=== PATIENT | male | born 1955 | race African-American/Black ===

== ENCOUNTER 2017-06-04 12:40 | Emergency (ER) | payer MEDICARE ==
[~2017-06-04] VITALS: Ht 170.2 cm; Wt 88.7 kg
[~2017-06-04 12:40] MED LIST: ALLOPURINOL; LOVENOX
[2017-06-04] MEDS ORDERED: SODIUM CHLORIDE FLUSH 10ML SYR IVF ONE (13:30)
[2017-06-04] MEDS ORDERED: SODIUM CHLORIDE 0.9% 1,000ML IVBOLUS ONE (13:30)
[2017-06-04 13:47] LABS: BASOPHILS # (AUTO) 0.03 x10^3/uL (0-0.1); BASOPHILS % (AUTO) 1 % (0-1); EOSINOPHILS % (AUTO) 2 % (1-7); LYMPHOCYTES # (AUTO) 2.26 x10^3/uL (1-3.4); LYMPHOCYTES % (AUTO) 37 % (22-44); MD NO; MEAN CORPUSCULAR HGB CONC 33.2 g/dL (33.2-36.2); MEAN CORPUSCULAR VOLUME 87.1 fL (81-97); MEAN PLATELET VOLUME 8.4 fL (7.4-10.4); MONOCYTES # (AUTO) 0.46 x10^3/uL (0.2-0.8); MONOCYTES % (AUTO) 8 % (2-9); NEUTROPHILS # (AUTO) 3.22 x10^3/uL (1.8-6.8); NEUTROPHILS % (AUTO) 53 % (42-75); PLATELET COUNT 229 x10^3/uL (130-400); RED BLOOD COUNT 5.15 x10^6/uL (4.38-5.82); RED CELL DISTRIBUTION WIDTH 13.9 % (9.4-14.8)
[2017-06-04 13:57] LABS: ALBUMIN 3.6 g/dL (3.4-5.0); ANION GAP 11 mmol/L (5-15); CALCIUM 8.5 mg/dL (8.5-10.1); CHLORIDE 106 mmol/L (98-107)
[2017-06-04 14:02] LABS: ALANINE AMINOTRANSFERASE 27 U/L (12-78); ALKALINE PHOSPHATASE 88 U/L (45-117); BILIRUBIN,TOTAL 0.8 mg/dL (0.2-1.0); CREATININE 1.14 mg/dL (0.7-1.3); FREE T4 (FREE THYROXINE) 0.91 ng/dL (0.76-1.46); TOTAL PROTEIN 8.3 g/dL (6.4-8.2); TROPONIN I < 0.015 ng/mL (0.000-0.045)
[2017-06-04 15:04] LABS: MICROSCOPIC AUTO
[2017-06-04 15:08] LABS: CULTURE INDICATED? NO
[2017-06-04 16:12] VITALS: BP 134/92
== END 2017-06-04 16:14 | disposition home or self-care (01) ==
LOC: ED 14:42
DX: E86.0 Dehydration (principal); E11.65 Type 2 diabetes mellitus with hyperglycemia; I10 Essential (primary) hypertension; E87.2 Acidosis
CPT/HCPCS: 36415; 71045; 80053; 81001; 83605; 83690; 84439; 84443; 84484; 85025; 93005; 96360; 99285; J7030

== ENCOUNTER 2018-01-09 11:36 | Day surgery (SDC) | payer OTHER ==
[~2018-01-09] VITALS: Ht 170.2 cm; Wt 82.2 kg
[2018-01-09 12:23] VITALS: BP 159/108
[2018-01-09] MEDS ORDERED: LACTATED RINGERS 1,000 ML IV SCH (12:26)
[2018-01-09] MEDS ORDERED: ASPI-650 PO (12:28)
[2018-01-09] MEDS ORDERED: allopurinol PO (12:28)
[2018-01-09] MEDS ORDERED: ACETAMINOPHEN 500 MG TABLET PO ONE (12:30)
[2018-01-09] MEDS ORDERED: ONDANSETRON ODT 8 MG PO ONE (12:30)
[2018-01-09] MEDS ORDERED: FENTANYL PF 100 MCG/2ML ONE (13:14)
[2018-01-09] MEDS ORDERED: MIDAZOLAM 1 MG/ML, 2ML ONE (13:14)
[2018-01-09] MEDS ORDERED: BUPIVACAINE/PF 0.5% ONE (13:26)
[2018-01-09 13:29] LABS: ALANINE AMINOTRANSFERASE 25 U/L (12-78); ALBUMIN 3.6 g/dL (3.4-5.0); ANION GAP 11 mmol/L (5-15); CALCIUM 9.8 mg/dL (8.5-10.1); CHLORIDE 105 mmol/L (98-107); CREATININE 1.02 mg/dL (0.7-1.3)
[2018-01-09 13:31] LABS: ALKALINE PHOSPHATASE 117 U/L (45-117); TOTAL PROTEIN 8.3 g/dL (6.4-8.2)
[2018-01-09] MEDS ORDERED: LABETALOL 5MG/ML, 20ML IV PRN (14:00)
[2018-01-09] MEDS ORDERED: MIDAZOLAM 1 MG/ML, 2ML IV PRN (14:00)
[2018-01-09] MEDS ORDERED: SCOPOLAMINE PATCH, 1.5MG PATCH.TD72 TD PRN (14:00)
[2018-01-09] MEDS ORDERED: PROMETHAZINE 25 MG SUPP PR PRN (14:00)
[2018-01-09] MEDS ORDERED: FENTANYL PF 100 MCG/2ML IV PRN (14:00)
[2018-01-09] MEDS ORDERED: hydrALAzine 20 MG/ML, 1ML IV PRN (14:00)
[2018-01-09] MEDS ORDERED: ONDANSETRON 2MG/ML, 2ML IV PRN (14:00)
[2018-01-09] MEDS ORDERED: ALBUTEROL/IPRATROPIUM 2.5MG/0.5MG, 3 ML NPPB PRN (14:00)
[2018-01-09] MEDS ORDERED: HYDROmorphone 1 MG/ML, 1ML IV PRN (14:00)
[2018-01-09] MEDS ORDERED: OXYcodone 5 MG/5 ML ORAL.SOL UDC PO PRN (14:00)
[2018-01-09] MEDS ORDERED: MEPERIDINE/PF 25MG/0.5ML IVPush PRN (14:00)
[2018-01-09] MEDS ORDERED: CEFAZOLIN 1,000 MG ONE (14:13)
[2018-01-09] MEDS ORDERED: PROPOFOL 10 MG/ML, 20ML ONE (14:13)
[2018-01-09] MEDS ORDERED: DEXAMETHASONE 4 MG/ML, 1ML ONE (14:13)
[2018-01-09] MEDS ORDERED: OXYcodone 5 MG/5 ML ORAL.SOL UDC ONE (14:49)
[2018-01-09] MEDS ORDERED: KETOROLAC 30 MG/1 ML ONE (16:11)
== END 2018-01-09 17:00 | disposition home or self-care (01) ==
LOC: OUT 11:36
PROVIDERS: ATTEND Orthopaedic Surgery
DX: M67.432 Ganglion, left wrist (principal); M10.9 Gout, unspecified; E11.9 Type 2 diabetes mellitus without complications; I10 Essential (primary) hypertension; Z79.82 Long term (current) use of aspirin; Z79.899 Other long term (current) drug therapy; Z98.890 Other specified postprocedural states; Z72.89 Other problems related to lifestyle; Z86.73 Personal history of transient ischemic attack (TIA), and cerebral infarction without residual deficits; Z86.718 Personal history of other venous thrombosis and embolism
CPT/HCPCS: 25111; 36415; 80053; 82962; 88304; 93005; J0690; J1100; J1885; J2250; J2704; J3010; J3490; J7120; Q0162

== ENCOUNTER 2018-01-30 05:40 | Inpatient (IN) | payer OTHER ==
[~2018-01-30] VITALS: Ht 175.3 cm; Wt 84.2 kg
[2018-01-30] VITALS (10 sets, daily range): BP systolic 162–190; BP diastolic 97–120
[~2018-01-30 05:40] MED LIST changes: +ASPI-650 PO; +allopurinol PO
[2018-01-30] MEDS ORDERED: SODIUM CHLORIDE 0.9% 1,000ML IVBOLUS ONE (06:00)
[2018-01-30] MEDS ORDERED: SODIUM CHLORIDE FLUSH 10ML SYR IVF ONE (06:00)
[2018-01-30 06:45] LABS: MICROSCOPIC NOT IND
[2018-01-30 06:46] LABS: CULTURE INDICATED? NO
[2018-01-30 06:58] LABS: AMPHETAMINE SCREEN, URINE Negative (Negative); BARBITURATE SCREEN, URINE Negative (Negative); BENZODIAZEPINE SCREEN, URINE Negative (Negative); CANNABINOID SCREEN, URINE Negative (Negative); COCAINE SCREEN, URINE Negative (Negative); METHADONE SCREEN, URINE Negative (Negative); OPIATE SCREEN, URINE Negative (Negative)
[2018-01-30 07:12] LABS: ALANINE AMINOTRANSFERASE 28 U/L (12-78); ALBUMIN 3.8 g/dL (3.4-5.0); ANION GAP 17 mmol/L (5-15); CALCIUM 8.6 mg/dL (8.5-10.1); CHLORIDE 102 mmol/L (98-107); CREATININE 1.16 mg/dL (0.7-1.3)
[2018-01-30 07:13] LABS: SALICYLATE LEVEL < 1.7 mg/dL (2.8-20.0)
[2018-01-30 07:17] LABS: ALKALINE PHOSPHATASE 122 U/L (45-117); BILIRUBIN,TOTAL 1.3 mg/dL (0.2-1.0); TOTAL PROTEIN 8.3 g/dL (6.4-8.2)
[2018-01-30 07:22] LABS: ACETAMINOPHEN < 2 mcg/mL (10-30); BASOPHILS # (AUTO) 0.02 x10^3/uL (0-0.1); BASOPHILS % (AUTO) 0 % (0-1); EOSINOPHILS # (AUTO) 0.01 x10^3/uL (0-0.4); EOSINOPHILS % (AUTO) 0 % (1-7); LYMPHOCYTES # (AUTO) 1.48 x10^3/uL (1-3.4); LYMPHOCYTES % (AUTO) 17 % (22-44); MD NO; MEAN CORPUSCULAR HEMOGLOBIN 28.2 pg (27.5-34.5); MEAN CORPUSCULAR HGB CONC 32.9 g/dL (33.2-36.2); MEAN CORPUSCULAR VOLUME 85.8 fL (81-97); MEAN PLATELET VOLUME 9.2 fL (7.4-10.4); MONOCYTES # (AUTO) 0.56 x10^3/uL (0.2-0.8); MONOCYTES % (AUTO) 7 % (2-9); NEUTROPHILS # (AUTO) 6.46 x10^3/uL (1.8-6.8); NEUTROPHILS % (AUTO) 76 % (42-75); PLATELET COUNT 101 x10^3/uL (130-400); RED BLOOD COUNT 5.69 x10^6/uL (4.38-5.82); RED CELL DISTRIBUTION WIDTH 13.2 % (9.4-14.8)
[2018-01-30 07:23] LABS: TROPONIN I 0.686 ng/mL (0.000-0.045)
[2018-01-30] MEDS: LABETALOL 5MG/ML, 20ML IVPush ONE ×2 (07:30→07:38)
[2018-01-30] MEDS ORDERED: ASPIRIN 300 MG SUPP PR ONE (07:30)
[2018-01-30] MEDS ORDERED: LABETALOL 20 MG/4 ML ONE (07:31)
[2018-01-30] MEDS ORDERED: INSULIN REGULAR 100 UNITS/ML, 3ML VIAL ONE (08:51)
[2018-01-30] MEDS ORDERED: INSULIN REGULAR 100 UNITS/ML, 3ML VIAL IVPush ONE (09:00)
[2018-01-30] MEDS ORDERED: DEXTROSE 4 GM TAB.CHEW PO PRN (10:30)
[2018-01-30] MEDS ORDERED: GLUCAGON 1 MG IM PRN (10:30)
[2018-01-30] MEDS ORDERED: DEXTROSE 50%, 50ML SYRINGE IVPush PRN (10:30)
[2018-01-30] MEDS: SODIUM CHLORIDE 0.9% 1,000 ML IV SCH (12:14)
[2018-01-30 13:23] LABS: INTERNATIONAL NORMALIZED RATIO 1.09 (0.93-1.1); PROTHROMBIN TIME 11.5 Seconds (9.6-11.5)
[2018-01-30 13:31] LABS: HEMOGLOBIN A1C 14.4 % (4.2-6.3)
[2018-01-30] MEDS: SODIUM CHLORIDE FLUSH 10ML SYR IVF SCH (21:00)
[2018-01-31] VITALS (13 sets, daily range): BP systolic 141–179; BP diastolic 96–117
[2018-01-31] MEDS: SODIUM CHLORIDE 0.9% 1,000 ML IV SCH ×2 (02:28→14:43)
[2018-01-31 05:26] LABS: CHOL/HDL RATIO 2.6; LDL/HDL RATIO 1.3 (0.5-3.0)
[2018-01-31] MEDS ORDERED: INSULIN REGULAR 100 UNITS/ML, 3ML VIAL SQ-INSULIN SCH (07:00)
[2018-01-31] MEDS ORDERED: ASPIRIN 81 MG TABLET CHEW PO/NG SCH (09:00)
[2018-01-31] MEDS: ASPIRIN 81 MG TABLET CHEW PO/NG SCH (09:22)
[2018-01-31] MEDS: CLOPIDOGREL 75 MG TABLET PO SCH (09:23)
[2018-01-31] MEDS: SODIUM CHLORIDE FLUSH 10ML SYR IVF SCH ×2 (09:23→20:42)
[2018-01-31] MEDS ORDERED: INSULIN REGULAR 100 UNITS/ML, 3ML VIAL SQ-INSULIN ONE (10:30)
[2018-01-31] MEDS ORDERED: LEVETIRACETAM 1,000 MG in SODIUM CHLORIDE 0.9% 100 ML IV STA (11:45)
[2018-01-31] MEDS: HEPARIN 5,000 UNITS/ML, 1ML SQ SCH ×2 (12:06→22:01)
[2018-01-31] MEDS: CARVEDILOL 6.25 MG TABLET PO SCH ×2 (14:37→20:27)
[2018-01-31] MEDS ORDERED: LORazepam 2 MG/ML, 1ML IVPush ONE (15:30)
[2018-01-31] MEDS ORDERED: LEVETIRACETAM 1,000 MG in SODIUM CHLORIDE 0.9% 100 ML IV ONE (15:30)
[2018-01-31] MEDS ORDERED: hydrALAzine 20 MG/ML, 1ML IV PRN (15:30)
[2018-01-31] MEDS: LEVETIRACETAM 1,000 MG in SODIUM CHLORIDE 0.9% 100 ML IV SCH (16:04)
[2018-01-31] MEDS: INSULIN LISPRO 100 UNITS/ML, PEN SQ-INSULIN SCH ×2 (16:05→22:00)
[2018-01-31] MEDS: ATORVASTATIN 80 MG TABLET PO SCH (20:27)
[2018-01-31] MEDS ORDERED: LEVETIRACETAM 500 MG in SODIUM CHLORIDE 0.9% 100 ML IV SCH (21:00)
[2018-02-01] VITALS (9 sets, daily range): BP systolic 134–170; BP diastolic 88–110
[2018-02-01] MEDS ORDERED: LORazepam 2 MG/ML, 1ML IVPush ONE (02:00)
[2018-02-01] MEDS: LEVETIRACETAM 1,000 MG in SODIUM CHLORIDE 0.9% 100 ML IV SCH ×2 (03:06→16:55)
[2018-02-01] MEDS ORDERED: INSULIN LISPRO 100 UNITS/ML, PEN SQ-INSULIN SCH (04:00)
[2018-02-01] MEDS: SODIUM CHLORIDE 0.9% 1,000 ML IV SCH ×2 (05:04→14:52)
[2018-02-01] MEDS: CARVEDILOL 6.25 MG TABLET PO SCH (05:07)
[2018-02-01 06:34] LABS: ANION GAP 11 mmol/L (5-15); CALCIUM 9.3 mg/dL (8.5-10.1); CHLORIDE 115 mmol/L (98-107); CREATININE 1.05 mg/dL (0.7-1.3)
[2018-02-01 06:37] LABS: MEAN CORPUSCULAR HEMOGLOBIN 28.5 pg (27.5-34.5); MEAN CORPUSCULAR HGB CONC 33.7 g/dL (33.2-36.2); MEAN CORPUSCULAR VOLUME 84.7 fL (81-97); MEAN PLATELET VOLUME 9.8 fL (7.4-10.4); PLATELET COUNT 125 x10^3/uL (130-400); RED BLOOD COUNT 5.15 x10^6/uL (4.38-5.82); RED CELL DISTRIBUTION WIDTH 13.7 % (9.4-14.8)
[2018-02-01 07:48] LABS: BASOPHILS # (AUTO) 0.04 x10^3/uL (0-0.1); BASOPHILS % (AUTO) 0 % (0-1); EOSINOPHILS % (AUTO) 0 % (1-7); LYMPHOCYTES % (AUTO) 12 % (22-44); MD SCAN; MONOCYTES # (AUTO) 1.99 x10^3/uL (0.2-0.8); MONOCYTES % (AUTO) 14 % (2-9); NEUTROPHILS # (AUTO) 10.78 x10^3/uL (1.8-6.8); NEUTROPHILS % (AUTO) 74 % (42-75)
[2018-02-01] MEDS: SODIUM CHLORIDE FLUSH 10ML SYR IVF SCH ×2 (08:53→21:00)
[2018-02-01] MEDS: ASPIRIN 81 MG TABLET CHEW PO/NG SCH (08:54)
[2018-02-01] MEDS: HEPARIN 5,000 UNITS/ML, 1ML SQ SCH ×3 (08:55→21:04)
[2018-02-01] MEDS: CLOPIDOGREL 75 MG TABLET PO SCH (09:00)
[2018-02-01] MEDS: INSULIN LISPRO 100 UNITS/ML, PEN SQ-INSULIN SCH ×3 (09:08→22:44)
[2018-02-01] MEDS ORDERED: PHENYTOIN SODIUM 1,000 MG in SODIUM CHLORIDE 0.9% 100 ML IV STA (09:22)
[2018-02-01] MEDS ORDERED: FILTER 0.22 MICRON IV ONE (09:30)
[2018-02-01] MEDS ORDERED: LISINOPRIL 10 MG TABLET PO SCH (12:30)
[2018-02-01] MEDS: PHENYTOIN SODIUM 50 MG/ML, 2ML IVPush SCH ×2 (16:56→21:04)
[2018-02-01] MEDS: CARVEDILOL 12.5 MG TABLET PO SCH (16:59)
[2018-02-01] MEDS: ATORVASTATIN 80 MG TABLET PO SCH (21:03)
[2018-02-02 01:27] VITALS: BP 108/81
[2018-02-02] MEDS: LEVETIRACETAM 1,000 MG in SODIUM CHLORIDE 0.9% 100 ML IV SCH ×2 (03:20→16:43)
[2018-02-02] MEDS: INSULIN LISPRO 100 UNITS/ML, PEN SQ-INSULIN SCH (03:29)
[2018-02-02 05:28] VITALS: BP 159/96
[2018-02-02] MEDS: HEPARIN 5,000 UNITS/ML, 1ML SQ SCH (05:30)
[2018-02-02] MEDS: CARVEDILOL 12.5 MG TABLET PO SCH (05:30)
[2018-02-02] MEDS: SODIUM CHLORIDE 0.9% 1,000 ML IV SCH (06:22)
[2018-02-02 07:37] VITALS: BP 138/90
[2018-02-02] MEDS: PHENYTOIN SODIUM 50 MG/ML, 2ML IVPush SCH ×3 (09:27→21:37)
[2018-02-02] MEDS: SODIUM CHLORIDE FLUSH 10ML SYR IVF SCH ×2 (09:27→21:37)
[2018-02-02] MEDS ORDERED: morphine SULFATE/PF 0.5 MG/ML, 10ML IV PRN (09:30)
[2018-02-02 13:16] VITALS: BP 138/90
[2018-02-02] MEDS: MORPHINE SULFATE 4 MG/ML, 1ML IV PRN (21:57)
[2018-02-02] MEDS ORDERED: MORPHINE SULFATE 4 MG/ML, 1ML IV PRN (22:00)
[2018-02-02] MEDS: LORazepam 2 MG/ML, 1ML IVPush PRN (23:41)
[2018-02-03] MEDS: MORPHINE SULFATE 4 MG/ML, 1ML IV PRN ×2 (02:20→06:20)
[2018-02-03] MEDS ORDERED: ATROPINE OPHTH SOLN 1%, 2ML BC PRN (03:00)
[2018-02-03] MEDS: LEVETIRACETAM 1,000 MG in SODIUM CHLORIDE 0.9% 100 ML IV SCH (05:25)
[2018-02-03] MEDS: LORazepam 2 MG/ML, 1ML IVPush PRN (05:50)
== END 2018-02-03 09:30 | disposition expired | DRG 64 ==
LOC: ED 05:45 → 5SO 08:52 → 3NW 02-02 18:14
PROVIDERS: ADMIT Hospitalist; ATTEND Hospitalist
PROC: 0T9B70Z Drainage of Bladder with Drainage Device, Via Natural or Artificial Opening (ICD-10-PCS; principal; 2018-01-30)
DX: I63.9 Cerebral infarction, unspecified (principal); J96.01 Acute respiratory failure with hypoxia; I21.4 Non-ST elevation (NSTEMI) myocardial infarction; R41.4 Neurologic neglect syndrome; G81.91 Hemiplegia, unspecified affecting right dominant side; G40.101 Localization-related (focal) (partial) symptomatic epilepsy and epileptic syndromes with simple partial seizures, not intractable, with status epilepticus; R47.01 Aphasia; I65.22 Occlusion and stenosis of left carotid artery; E11.65 Type 2 diabetes mellitus with hyperglycemia; E78.5 Hyperlipidemia, unspecified; E86.0 Dehydration; I10 Essential (primary) hypertension; I25.10 Atherosclerotic heart disease of native coronary artery without angina pectoris; F17.200 Nicotine dependence, unspecified, uncomplicated; Z51.5 Encounter for palliative care; Z66 Do not resuscitate; Z72.89 Other problems related to lifestyle; Z91.19 Patient's noncompliance with other medical treatment and regimen; Z79.82 Long term (current) use of aspirin; Z79.899 Other long term (current) drug therapy
CPT/HCPCS: 36415; 70450; 70551; 71045; 74018; 80048; 80053; 80061; 80185; 80307; 80329; 81003; 82140; 82962; 83036; 84484; 85025; 85610; 87806; 93005; 93306; 93880; 95816; 96374; 96375; 99291; G0378; J1165; J1644; J1815; J1953; 92523-GN; G0475; G0480; J0360; J2060; J7030